=== PATIENT | female | born 1990 | race Caucasian/White ===

== ENCOUNTER 2017-12-04 14:39 | Outpatient (CLI) | payer OTHER ==
[2017-12-04 15:47] LABS: RUPTURE FETAL MEMBRANES NEGATIVE (NEGATIVE)
== END 2017-12-04 16:30 | disposition home or self-care (01) ==
LOC: OBT 14:39 → L-D 14:40 → OBT 16:30
DX: O47.03 False labor before 37 completed weeks of gestation, third trimester (principal); Z3A.34 34 weeks gestation of pregnancy
CPT/HCPCS: 76818; 84112

== ENCOUNTER 2017-12-13 18:58 | Outpatient (CLI) | payer OTHER ==
[2017-12-13 19:50] LABS: ADD UMIC YES; UR ASCORBIC ACID NEGATIVE (NEGATIVE); UR BACTERIA FEW /HPF (NONE SEEN); UR BILIRUBIN (Dip) NEGATIVE (NEGATIVE); UR BLOOD (Dip) NEGATIVE (NEGATIVE); UR CLARITY CLEAR (CLEAR); UR COLOR YELLOW (YELLOW); UR GLUCOSE (Dip) NEGATIVE (NEGATIVE); UR KETONES (Dip) NEGATIVE (NEGATIVE); UR LEUKOCYTE ESTERASE (Dip) 3+ Leu/ul (NEGATIVE); UR NITRITE (Dip) NEGATIVE (NEGATIVE); UR RBC 1 /HPF (0-5); UR SQUAMOUS EPITHELIAL CELL FEW /HPF (FEW); UR TOTAL PROTEIN (Dip) NEGATIVE (NEGATIVE); UR UROBILINOGEN (Dip) NEGATIVE (NEGATIVE); UR WBC 3 /HPF (0-5)
[2017-12-13 20:12] LABS: ADD MAN DIFF? NO
[2017-12-13 20:16] LABS: BASOPHILS % 0.3 % (0.0-2.0); EOSINOPHILS # 0.3 10^3/ul (0.0-0.5); EOSINOPHILS % 2.9 % (0.0-7.0); HEMATOCRIT 31.9 % (37.0-47.0); HEMOGLOBIN 10.6 g/dl (12.0-16.0); LYMPHOCYTES # 1.7 10^3/ul (0.8-2.9); LYMPHOCYTES % 18.8 % (15.0-51.0); MEAN CORPUSCULAR HEMOGLOBIN 29.4 pg (29.0-33.0); MEAN CORPUSCULAR HGB CONC 33.2 g/dl (32.0-37.0); MEAN CORPUSCULAR VOLUME 88.6 fl (82.0-101.0); MEAN PLATELET VOLUME 9.5 fl (7.4-10.4); MONOCYTE # 0.7 10^3/ul (0.3-0.9); MONOCYTES % 8.2 % (0.0-11.0); NEUTROPHIL # 6.2 10^3/ul (1.6-7.5); NEUTROPHILS % 68.8 % (39.0-77.0); PLATELET COUNT 307 10^3/UL (140-415); RED CELL DISTRIBUTION WIDTH 15.9 % (11.5-14.5)
[2017-12-13 20:37] LABS: ALANINE AMINOTRANSFERASE 24 IU/L (13-69); ALBUMIN 3.5 g/dl (3.3-4.9); ALKALINE PHOSPHATASE 103 IU/L (42-121); ANION GAP 16 (8-16); ASPARTATE AMINO TRANSFERASE 16 IU/L (15-46); BLOOD UREA NITROGEN 13 mg/dl (7-20); CALCIUM 9.6 mg/dl (8.4-10.2); CARBON DIOXIDE 20 mmol/L (21-31); CHLORIDE 109 mmol/L (97-110); CREATININE 0.61 mg/dl (0.44-1.00); GLUCOSE 71 mg/dl (70-220); POTASSIUM 4.3 mmol/L (3.5-5.1); SODIUM 141 mmol/L (135-144); URIC ACID 5.7 mg/dl (3.1-7.9)
== END 2017-12-13 21:21 | disposition home or self-care (01) ==
LOC: OBT 18:58 → L-D 18:59 → OBT 21:21
DX: O13.3 Gestational [pregnancy-induced] hypertension without significant proteinuria, third trimester (principal); Z3A.36 36 weeks gestation of pregnancy
CPT/HCPCS: 36415; 76818; 80053; 81001; 84560; 85025

== ENCOUNTER 2017-12-15 14:22 | Outpatient (CLI) | payer OTHER ==
[2017-12-15 15:49] LABS: ADD UMIC YES; UR ASCORBIC ACID 40 mg/dL (NEGATIVE); UR BILIRUBIN (Dip) NEGATIVE (NEGATIVE); UR BLOOD (Dip) NEGATIVE (NEGATIVE); UR CLARITY CLEAR (CLEAR); UR COLOR YELLOW (YELLOW); UR GLUCOSE (Dip) NEGATIVE (NEGATIVE); UR KETONES (Dip) TRACE mg/dL (NEGATIVE); UR LEUKOCYTE ESTERASE (Dip) 1+ Leu/ul (NEGATIVE); UR MUCUS FEW /HPF (NONE SEEN); UR NITRITE (Dip) NEGATIVE (NEGATIVE); UR RBC 0 /HPF (0-5); UR SPECIFIC GRAVITY (Dip) 1.026 (1.003-1.030); UR TOTAL PROTEIN (Dip) 1+ mg/dl (NEGATIVE); UR UROBILINOGEN (Dip) NEGATIVE (NEGATIVE); UR WBC 4 /HPF (0-5)
== END 2017-12-15 15:35 | disposition home or self-care (01) ==
LOC: OBT 14:22 → L-D 14:23 → OBT 15:35
DX: O26.893 Other specified pregnancy related conditions, third trimester (principal); M79.672 Pain in left foot; M79.89 Other specified soft tissue disorders; O34.219 Maternal care for unspecified type scar from previous cesarean delivery; O09.292 Supervision of pregnancy with other poor reproductive or obstetric history, second trimester; Z3A.37 37 weeks gestation of pregnancy
CPT/HCPCS: 81001

== ENCOUNTER 2017-12-19 19:32 | Outpatient (CLI) | payer OTHER ==
[2017-12-19 21:28] LABS: ADD MAN DIFF? NO
[2017-12-19 21:32] LABS: BASOPHILS % 0.2 % (0.0-2.0); EOSINOPHILS # 0.2 10^3/ul (0.0-0.5); EOSINOPHILS % 2.2 % (0.0-7.0); HEMATOCRIT 31.8 % (37.0-47.0); HEMOGLOBIN 10.5 g/dl (12.0-16.0); LYMPHOCYTES # 1.6 10^3/ul (0.8-2.9); LYMPHOCYTES % 17.1 % (15.0-51.0); MEAN CORPUSCULAR HEMOGLOBIN 29.6 pg (29.0-33.0); MEAN CORPUSCULAR VOLUME 89.6 fl (82.0-101.0); MEAN PLATELET VOLUME 9.7 fl (7.4-10.4); MONOCYTE # 0.7 10^3/ul (0.3-0.9); MONOCYTES % 7.5 % (0.0-11.0); NEUTROPHIL # 6.7 10^3/ul (1.6-7.5); NEUTROPHILS % 72.2 % (39.0-77.0); PLATELET COUNT 294 10^3/UL (140-415); RED BLOOD COUNT 3.55 10^6/ul (4.20-5.40); RED CELL DISTRIBUTION WIDTH 16.4 % (11.5-14.5)
[2017-12-19 21:32] LABS: WHITE BLOOD COUNT 9.3 10^3/ul (4.8-10.8)
[2017-12-19 21:41] LABS: ADD UMIC YES; UR ASCORBIC ACID NEGATIVE (NEGATIVE); UR BILIRUBIN (Dip) NEGATIVE (NEGATIVE); UR BLOOD (Dip) NEGATIVE (NEGATIVE); UR CLARITY CLEAR (CLEAR); UR COLOR YELLOW (YELLOW); UR GLUCOSE (Dip) NEGATIVE (NEGATIVE); UR KETONES (Dip) NEGATIVE (NEGATIVE); UR LEUKOCYTE ESTERASE (Dip) TRACE Leu/ul (NEGATIVE); UR NITRITE (Dip) NEGATIVE (NEGATIVE); UR RBC 1 /HPF (0-5); UR SPECIFIC GRAVITY (Dip) 1.024 (1.003-1.030); UR SQUAMOUS EPITHELIAL CELL FEW /HPF (FEW); UR TOTAL PROTEIN (Dip) 1+ mg/dl (NEGATIVE); UR UROBILINOGEN (Dip) NEGATIVE (NEGATIVE); UR WBC 1 /HPF (0-5)
[2017-12-19 21:57] LABS: ALANINE AMINOTRANSFERASE 25 IU/L (13-69); ALBUMIN 3.3 g/dl (3.3-4.9); ALKALINE PHOSPHATASE 116 IU/L (42-121); ANION GAP 15 (8-16); ASPARTATE AMINO TRANSFERASE 17 IU/L (15-46); BLOOD UREA NITROGEN 14 mg/dl (7-20); CARBON DIOXIDE 20 mmol/L (21-31); CHLORIDE 110 mmol/L (97-110); CREATININE 0.63 mg/dl (0.44-1.00); GLUCOSE 74 mg/dl (70-220); POTASSIUM 4.2 mmol/L (3.5-5.1); SODIUM 141 mmol/L (135-144); TOTAL PROTEIN 6.6 g/dl (6.1-8.1); URIC ACID 5.8 mg/dl (3.1-7.9)
[2017-12-19 22:01] LABS: INR 0.92; PROTIME 12.4 Sec (11.9-14.9)
[2017-12-19 22:02] LABS: PARTIAL THROMBOPLASTIN TIME 26.7 Sec (25.0-35.0)
== END 2017-12-19 23:45 | disposition home or self-care (01) ==
LOC: OBT 19:32 → L-D 19:33 → OBT 23:45
DX: O13.3 Gestational [pregnancy-induced] hypertension without significant proteinuria, third trimester (principal); Z3A.37 37 weeks gestation of pregnancy
CPT/HCPCS: 80053; 81001; 84560; 85025; 85384; 85610; 85730

== ENCOUNTER 2017-12-20 14:04 | Inpatient (IN) | payer OTHER ==
[2017-12-20] MEDS: LACTATED RINGER'S 1,000 ML IV ×3 (15:28→19:54)
[2017-12-20] MEDS ORDERED: CARBOPROST 250 MCG INJ IM (15:30)
[2017-12-20] MEDS ORDERED: OXYTOCIN 30 UNITS/LR 500 ML IV ×2 (15:30→20:10)
[2017-12-20] MEDS ORDERED: MISOPROSTOL 200 MCG TAB PR (15:30)
[2017-12-20] MEDS ORDERED: METHYLERGONOVINE 0.2 MG INJ IM (15:30)
[2017-12-20 15:39] LABS: ADD MAN DIFF? NO
[2017-12-20 15:40] LABS: WHITE BLOOD COUNT 8.5 10^3/ul (4.8-10.8)
[2017-12-20 15:40] LABS: BASOPHILS % 0.2 % (0.0-2.0); EOSINOPHILS # 0.2 10^3/ul (0.0-0.5); EOSINOPHILS % 1.8 % (0.0-7.0); HEMOGLOBIN 10.9 g/dl (12.0-16.0); LYMPHOCYTES # 1.4 10^3/ul (0.8-2.9); LYMPHOCYTES % 16.2 % (15.0-51.0); MEAN CORPUSCULAR HEMOGLOBIN 29.5 pg (29.0-33.0); MEAN CORPUSCULAR VOLUME 89.4 fl (82.0-101.0); MEAN PLATELET VOLUME 9.7 fl (7.4-10.4); MONOCYTE # 0.6 10^3/ul (0.3-0.9); MONOCYTES % 6.8 % (0.0-11.0); NEUTROPHIL # 6.3 10^3/ul (1.6-7.5); NEUTROPHILS % 74.2 % (39.0-77.0); PLATELET COUNT 298 10^3/UL (140-415); RED BLOOD COUNT 3.69 10^6/ul (4.20-5.40); RED CELL DISTRIBUTION WIDTH 16.7 % (11.5-14.5)
[2017-12-20 16:00] LABS: INR 0.82; PROTIME 11.4 Sec (11.9-14.9); PT RATIO 0.9
[2017-12-20 16:01] LABS: PARTIAL THROMBOPLASTIN TIME 26.2 Sec (25.0-35.0)
[2017-12-20 16:36] LABS: HEPATITIS B SURFACE ANTIGEN NEGATIVE (NEGATIVE)
[2017-12-20] MEDS ORDERED: EPHEDrine SULFATE 50 MG/5 ML SYG (20:10)
[2017-12-20] MEDS ORDERED: ONDANSETRON 4 MG INJ (20:10)
[2017-12-20] MEDS ORDERED: BUPIVACAINE 0.75%/DEXT (SPINAL) 2 ML INJ (20:10)
[2017-12-20] MEDS ORDERED: METOCLOPRAMIDE 10 MG INJ (20:10)
[2017-12-20] MEDS ORDERED: morphine SULFATE/PF (10 MG/10 ML) INJ (20:10)
[2017-12-20] MEDS ORDERED: OXYTOCIN 10 UNIT INJ (20:10)
[2017-12-20] MEDS: CEFAZOLIN 3 GM in DEXTROSE 5% 100 ML IV (20:12)
[2017-12-20] MEDS ORDERED: MIDAZOLAM 1 MG/ML 2 ML INJ ×2 (21:15→21:18)
[2017-12-20 22:18] LABS: RAPID PLASMA REAGIN NONREACTIVE (NR)
[2017-12-20] MEDS ORDERED: ONDANSETRON 4 MG INJ IV (22:30)
[2017-12-20] MEDS: morphine SULFATE/PF (10 MG/10 ML) INJ SPINAL (22:30)
[2017-12-20] MEDS ORDERED: morphine 2 MG INJ IV ×2 (22:30)
[2017-12-20] MEDS ORDERED: EPHEDrine SULFATE 50 MG/5 ML SYG IV (22:30)
[2017-12-20] MEDS ORDERED: NALOXONE (0.4 MG/ML) INJ IV (22:30)
[2017-12-20] MEDS: KETOROLAC 30 MG INJ IV (23:00)
[2017-12-20] MEDS: OXYTOCIN 30 UNITS/LR 500 ML IV (23:33)
[2017-12-20] MEDS: DIPHENHYDRAMINE 50 MG INJ IV (23:34)
[2017-12-21] MEDS ORDERED: OXYCODONE/ACETAMINOPHEN (5/325) TAB PO (00:30)
[2017-12-21] MEDS ORDERED: METHYLERGONOVINE 0.2 MG TAB PO (00:30)
[2017-12-21] MEDS: OXYCODONE/ACETAMINOPHEN (5/325) TAB PO ×3 (00:30→15:56)
[2017-12-21] MEDS ORDERED: METHYLERGONOVINE 0.2 MG INJ IM (00:30)
[2017-12-21] MEDS ORDERED: HYDROCODONE/APAP (5/325) TAB PO (00:30)
[2017-12-21] MEDS ORDERED: OXYTOCIN 30 UNITS/LR 500 ML IV (00:30)
[2017-12-21] MEDS ORDERED: MISOPROSTOL 200 MCG TAB PR (00:30)
[2017-12-21] MEDS ORDERED: CARBOPROST 250 MCG INJ IM (00:30)
[2017-12-21] MEDS: DEXAMETHASONE 4 MG/ML 1 ML INJ IV (02:18)
[2017-12-21] MEDS: OXYTOCIN 30 UNITS/LR 500 ML IV (04:31)
[2017-12-21] MEDS: LANOLIN 7 GM TUBE TOP (04:31)
[2017-12-21] MEDS: DIPHENHYDRAMINE 50 MG INJ IV (06:34)
[2017-12-21] MEDS: DEXTROSE 5%-LR 1,000 ML IV ×3 (07:00→15:56)
[2017-12-21] MEDS: SENNA/DOCUSATE NA (8.6MG/50MG) TAB PO ×2 (09:00→20:25)
[2017-12-21] MEDS: KETOROLAC 30 MG INJ IV (13:52)
[2017-12-21] MEDS: LACTATED RINGER'S 1,000 ML IV ×2 (15:51→23:22)
[2017-12-21] MEDS: HYDROCODONE/APAP (5/325) TAB PO (20:22)
[2017-12-21] MEDS: IBUPROFEN 800 MG TAB PO (22:29)
[2017-12-22] MEDS: OXYCODONE/ACETAMINOPHEN (5/325) TAB PO ×3 (00:57→15:14)
[2017-12-22] MEDS: IBUPROFEN 800 MG TAB PO ×3 (06:22→21:12)
[2017-12-22] MEDS: SENNA/DOCUSATE NA (8.6MG/50MG) TAB PO ×2 (09:45→21:12)
[2017-12-22 10:19] LABS: ADD MAN DIFF? NO
[2017-12-22 10:22] LABS: BASOPHILS % 0.3 % (0.0-2.0); EOSINOPHILS # 0.2 10^3/ul (0.0-0.5); HEMATOCRIT 26.9 % (37.0-47.0); HEMOGLOBIN 8.9 g/dl (12.0-16.0); LYMPHOCYTES # 1.9 10^3/ul (0.8-2.9); LYMPHOCYTES % 21.3 % (15.0-51.0); MEAN CORPUSCULAR HEMOGLOBIN 29.8 pg (29.0-33.0); MEAN CORPUSCULAR HGB CONC 33.1 g/dl (32.0-37.0); MEAN PLATELET VOLUME 9.2 fl (7.4-10.4); MONOCYTE # 0.7 10^3/ul (0.3-0.9); MONOCYTES % 7.5 % (0.0-11.0); NEUTROPHIL # 6.1 10^3/ul (1.6-7.5); PLATELET COUNT 246 10^3/UL (140-415); RED BLOOD COUNT 2.99 10^6/ul (4.20-5.40); RED CELL DISTRIBUTION WIDTH 17.2 % (11.5-14.5)
[2017-12-22] MEDS ORDERED: OXYCODONE/ACETAMINOPHEN (10/325) TAB PO (14:00)
[2017-12-22] MEDS ORDERED: GUAIFENESIN/DM 5ML CUP PO (16:00)
[2017-12-22] MEDS: INFLUENZA VIRUS VACCINE 0.5 ML (DISPENSING) IM* (19:00)
[2017-12-23] MEDS: OXYCODONE/ACETAMINOPHEN (5/325) TAB PO ×2 (00:16→09:35)
[2017-12-23] MEDS: IBUPROFEN 800 MG TAB PO (05:58)
[2017-12-23] MEDS: SENNA/DOCUSATE NA (8.6MG/50MG) TAB PO (09:35)
[2017-12-23] MEDS: DIPHTH/TET/ACEL PERTUSS (ADULT) 0.5 ML VIAL IM* (12:04)
[2017-12-23] MEDS: LANOLIN 7 GM TUBE TOP (12:10)
[2017-12-24] MEDS ORDERED: MEASLES,MUMPS,RUBELLA VACCINE INJ SC* (09:00)
== END 2017-12-23 15:15 | disposition home or self-care (01) | DRG 765 ==
LOC: L-D 14:04 → PP1 12-21 00:40 → L-D 19:41
PROVIDERS: Obstetrics & Gynecology
PROC: 10D00Z1 Extraction of Products of Conception, Low, Open Approach (ICD-10-PCS; principal; 2017-12-20 18:30)
PROC: 3E033VJ Introduction of Other Hormone into Peripheral Vein, Percutaneous Approach (ICD-10-PCS; 2017-12-20 18:30)
DX: O34.211 Maternal care for low transverse scar from previous cesarean delivery (principal); Z68.41 Body mass index [BMI] 40.0-44.9, adult; O99.214 Obesity complicating childbirth; E66.01 Morbid (severe) obesity due to excess calories; O13.3 Gestational [pregnancy-induced] hypertension without significant proteinuria, third trimester; Z3A.37 37 weeks gestation of pregnancy; Z37.0 Single live birth
CPT/HCPCS: 85025; 85610; 85730; 86592; 86850; 86900; 86901; 87340; 90715; 94760; 99464

== ENCOUNTER 2018-01-19 09:07 | Emergency (ER) | payer OTHER | END 2018-01-19 10:15 | disposition home or self-care (01) | LOC: FTE 09:07 | DX: O86.0 Infection of obstetric surgical wound (principal); L73.9 Follicular disorder, unspecified; B96.89 Other specified bacterial agents as the cause of diseases classified elsewhere | CPT/HCPCS: 99283; Z7502 ==